=== PATIENT | female | born 1965 | race Native Hawaiian/Other Pacific Islander ===

== ENCOUNTER 2017-02-17 16:01 | Observation (INO) | payer OTHER ==
[~2017-02-17] VITALS: Ht 167.6 cm; Wt 102.1 kg
[2017-02-17 17:59] LABS: PLATELET COUNT 250 K/uL (152-353)
[2017-02-17 18:10] LABS: POTASSIUM 3.2 mmol/L (3.6-5.2); SODIUM 139 mmol/L (136-145)
[2017-02-17 18:49] VITALS: BP 171/82; TEMP 98.3; Ht 167.6 cm; Wt 102.1 kg
[2017-02-17 20:21] VITALS: BP 159/67; TEMP 98.1
[2017-02-18] VITALS: BP 116/56; TEMP 97.8
[2017-02-18] MEDS ORDERED: PROMETHAZINE-DM OR (00:11)
[2017-02-18] MEDS ORDERED: AZIT250T3 PO (00:12)
[2017-02-18] MEDS ORDERED: PROTONIX20 MG PO (00:13)
[2017-02-18] MEDS ORDERED: PROAIR HFA IN (00:14)
[2017-02-18] MEDS ORDERED: MEDROL4 MG OR (00:15)
[2017-02-18 04:00] VITALS: BP 130/82; TEMP 97.9
[2017-02-18 06:40] LABS: PLATELET COUNT 205 K/uL (152-353)
[2017-02-18 06:54] LABS: POTASSIUM 2.9 mmol/L (3.6-5.2); SODIUM 142 mmol/L (136-145)
[2017-02-18 12:00] VITALS: BP 123/63; TEMP 97.4
[2017-02-18 16:00] VITALS: BP 123/73; TEMP 98
== END 2017-02-18 18:30 | disposition home or self-care (01) ==
LOC: MED/SURG 16:01
PROVIDERS: Emergency Medicine; ADMIT Nurse Practitioner
DX: J20.9 Acute bronchitis, unspecified (principal); E66.8 Other obesity
CPT/HCPCS: 36415; 80053; 83735; 84100; 85027; 87040; 93005; 94640; 94664; 94760; 96365; 96366; 96367; 99220; G0378; G0379; J0456

== ENCOUNTER 2017-10-10 18:58 | Outpatient (CLI) | payer OTHER ==
[~2017-10-10 18:58] MED LIST: AZIT250T3 PO; MEDROL4 MG OR; PROAIR HFA IN; PROMETHAZINE-DM OR; PROTONIX20 MG PO
== END 2017-10-10 19:09 | disposition short-term general hospital (02) ==
LOC: AMB 18:58
DX: M79.605 Pain in left leg (principal); S80.211A Abrasion, right knee, initial encounter; S90.812A Abrasion, left foot, initial encounter; S50.312A Abrasion of left elbow, initial encounter; M21.862 Other specified acquired deformities of left lower leg; V09.09XA Pedestrian injured in nontraffic accident involving other motor vehicles, initial encounter; Y92.481 Parking lot as the place of occurrence of the external cause
CPT/HCPCS: A0425; A0427

== ENCOUNTER 2018-08-22 13:30 | Outpatient (CLI) | payer OTHER | END 2018-08-22 19:25 | disposition home or self-care (01) | LOC: MAMMO 13:30 | DX: Z12.31 Encounter for screening mammogram for malignant neoplasm of breast (principal) ==

== ENCOUNTER 2022-04-22 14:26 | Outpatient (CLI) | payer BC | END 2022-04-22 21:12 | disposition home or self-care (01) | LOC: MAMMO 14:26 | PROVIDERS: ATTEND Nurse Practitioner Family | DX: Z12.31 Encounter for screening mammogram for malignant neoplasm of breast (principal) ==

== ENCOUNTER 2022-05-10 09:27 | Outpatient (CLI) | payer BC | END 2022-05-10 18:51 | disposition home or self-care (01) | LOC: MAMMO 09:27 | PROVIDERS: ATTEND Nurse Practitioner Family | DX: R92.8 Other abnormal and inconclusive findings on diagnostic imaging of breast (principal) ==